=== PATIENT | female | born 1940 | race Hispanic/Latino ===

== ENCOUNTER → 2017-08-20 | Outpatient (CLI) | payer MEDICARE ==
[~2017-08-20] MED LIST: CETRIZINE PO; FAMOTIDINE20 MG PO; FUROSEMIDE INJ 10 MG/ML 4 ML VIAL ONE; FUROSEMIDE40 MG PO; GABAPENTIN300 MG PO; ISOSORBIDE DINI20 MG PO; LOSARTAN POTAS100 MG PO; METFORMIN HCL500 M2 PO; METOPROLOL TART50 MG PO; NORCO 10-325 T1 EACH PO; PANTOPRAZOLE SO40 MG PO; SERTRALINE HCL50 MG PO; SIMVASTATIN40 MG PO
--- NOTE | 2017-08-20 18:56 | Diagnostic Imaging Report ---
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 Technique: Following intravenous administration of 11 mCi of Tc-99m MAG3, dynamic images of the kidneys in the posterior projection were obtained through 40 minutes. Lasix 40 mg was administered intravenously at 13 minutes post injection of the tracer. Report: Left kidney: Perfusion of the left kidney is prompt. The kidney has a reniform shape but is slightly reduced in size. Extraction of tracer from the blood pool is mildly decreased. Clearance of tracer from the renal parenchyma begins promptly but is not complete by the end of the study. The pelvicalyceal system is not dilated. Physiologic pooling of tracer within the pelvicalyceal system is seen. Drainage of tracer from the pelvicalyceal system is adequate prior to administration of Lasix. No significant stasis of tracer is seen within the left ureter. Right kidney: Perfusion to the right kidney is prompt. The right kidney has a small round non-reniform shape. Extraction of tracer from the blood pool by the renal parenchyma is decreased. Clearance of tracer from the renal parenchyma begins promptly but is not complete by the end of the study. The pelvicalyceal system is not dilated although a mildly dilated calyx is seen in the upper pole. Physiologic pooling of tracer within the pelvicalyceal system is seen. Drainage of tracer from the pelvicalyceal system is adequate prior to administration of Lasix. No significant stasis of tracer is seen within the right ureter. Differential renal function: The left kidney contributes 69% of total renal function and the right kidney contributes 31% (normal 43-57%). Impression: 1. Scan evidence of medical renal disease in the left kidney. No hydronephrosis is present. No physiologically significant obstruction of the renal collecting system is present. 2. The right kidney is smaller than the left kidney; this accounts for the decreased differential function of 31%. Scan evidence of medical renal disease in the right kidney. No hydronephrosis is present. No physiologically significant obstruction of the renal collecting system is present. Signed by: Dr. Patrizia Erazo M.D. on 08/20/2017 6:52 PM
== END ==
LOC: NM 14:27
PROVIDERS: ATTEND Urology
DX: R31.9 Hematuria, unspecified (principal); N31.9 Neuromuscular dysfunction of bladder, unspecified
CPT/HCPCS: 78708; A9562; J1940

== ENCOUNTER → 2019-04-13 | Outpatient (CLI) | payer MEDICARE ==
[~2019-04-13] MED LIST changes: +AMLODIPINE BESYL5 MG PO; +ASPIRIN81 MG PO; +CLOPIDOGREL75 MG PO; -FUROSEMIDE INJ 10 MG/ML 4 ML VIAL ONE; +VITAMIN D1000 UNI1 PO; +[UNRECOGNIZED DRUG - REMARK] PO
--- NOTE | 2019-04-13 13:21 | Diagnostic Imaging Report ---
Exam: KUB - 2 views Clinical History: Hematuria Comparison: Renal ultrasound of 04/13/2019 Findings: No radiographically apparent renal calculi. Nonobstructive bowel gas pattern. No free air. Extensive lower lumbar spine degenerative changes. Impression: No radiographically apparent renal calculi. Signed by: Aman Aponte MD on 04/13/2019 1:18 PM
--- NOTE | 2019-04-13 13:23 | Diagnostic Imaging Report ---
EXAM: Renal Ultrasound INDICATION: ^ASYMPTOMATIC MICROSCOPIC HEMATURIA/UTI COMPARISON: None TECHNIQUE: Transverse and longitudinal images of the kidneys and bladder were obtained. FINDINGS: Right Kidney: Length: 9.6 cm Appearance: Normal echogenicity, malrotated, as seen on CT. Collecting system: No hydronephrosis Stones: None Cyst/Mass: None Left Kidney: Length: 10.0 cm Appearance: Normal echogenicity. Collecting system: No hydronephrosis Stones: None Cyst/Mass: None. 5 mm cyst seen on CT is not appreciated on this sonographic evaluation. Bladder: No stones or mass. Prevoid volume estimate of 140 cc. Weak bilateral ureteral jets seen. IMPRESSION: No renal calculi or hydronephrosis. Signed by: Aman Aponte MD on 04/13/2019 1:20 PM
== END ==
LOC: US 11:59
PROVIDERS: ATTEND Urology
DX: R31.21 Asymptomatic microscopic hematuria (principal); N39.0 Urinary tract infection, site not specified
CPT/HCPCS: 74018; 76770

== ENCOUNTER → 2019-04-19 | Day surgery (SDC) | payer MEDICARE ==
[2019-04-13 16:13] LABS: BASOPHILS % 0.1 % (0.0-1.0); EOSINOPHILS # (AUTO) 0.1 (0.0-0.4); EOSINOPHILS % 0.9 % (0.0-6.0); HEMATOCRIT 36.8 % (34.2-44.1); HEMOGLOBIN 11.5 g/dL (12.0-16.0); LYMPHOCYTES % 14.3 % (18.0-39.1); MEAN CORPUSCULAR HEMOGLOBIN 29.1 pg (28-32); MEAN CORPUSCULAR HGB CONC 31.3 g/dL (31-35); MEAN CORPUSCULAR VOLUME 93.2 fL (81-99); MONOCYTES # (AUTO) 0.5 (0.2-0.8); MONOCYTES % 7.4 % (4.4-11.3); NEUTROPHILS # (AUTO) 5.3 (2.1-6.9); NEUTROPHILS % 76.9 % (38.7-80.0); PLATELET COUNT 136 x10e3/uL (140-360); RED BLOOD COUNT 3.95 x10e6/uL (3.6-5.1); RED CELL DISTRIBUTION WIDTH 13.2 % (11.7-14.4)
[2019-04-13 16:30] LABS: ANION GAP 11.1 mmol/L (8-16); BLOOD UREA NITROGEN 22 mg/dL (7-26); BUN/CREATININE RATIO 25 (6-25); CALCIUM 9.1 mg/dL (8.4-10.2); CARBON DIOXIDE 36 mmol/L (22-29); CHLORIDE 94 mmol/L (98-107); CREATININE, SERUM 0.89 mg/dL (0.57-1.11); EST GLOMERULAR FILTRATION RATE > 60 ML/MIN (60-); GLUCOSE 110 mg/dL (74-118); POTASSIUM 4.1 mmol/L (3.5-5.1); SODIUM 137 mmol/L (136-145)
--- NOTE | 2019-04-13 16:47 | Diagnostic Imaging Report ---
EXAMINATION: CHEST 2 VIEWS INDICATION: Pre-operative COMPARISON: CT abdomen pelvis of 11/25/2016 FINDINGS: LINES/TUBES:None LUNGS:The lungs are moderately inflated. No focal consolidation or pulmonary edema. PLEURA:No pleural effusion or pneumothorax. MEDIASTINUM:Cardiomediastinal silhouette is enlarged. Calcified components of the right hilum, possibly reflecting calcified hilar lymph nodes. Atherosclerotic calcifications of the thoracic aorta. BONES/SOFT TISSUES:No acute osseous injury. ABDOMEN:No free air under the diaphragm. IMPRESSION: No focal pneumonia or pulmonary edema. Cardiomegaly. Possible right calcified hilar lymph nodes. Signed by: Aman Aponet MD on 04/13/2019 4:43 PM
[~2019-04-19] MED LIST changes: +B&O 60MG R/S 60 MG SUPP PR ONE; +BOTULINUM TOXIN TYPE A 100 UNIT VIAL IM ONE; +CEFTRIAXONE SOD 1 GM/NS 50 ML 50 ML IV ONE; +IOPAMIDOL 610MG/1ML 300 MG/ML VIAL IV ONE; +LIDOCAINE HCL 2% LOCAL INJ 5 ML SDV VIAL INJ ONE; +PROPOFOL IV EMULSION 10 MG/ML 20 ML VIAL ONE; +SEVOFLURANE INHAL SOLN 250 ML PEN BTL ONE; +TOVIAZ4 MG
--- OUTSIDE RECORDS SUMMARY | 2019-04-19 05:10 | XMS REPORT | Summary of Care ---
Author Organization Unknown Address Unknown Phone Unavailable Encounter HQ [employer](FIN) [id number] Date(s): 05/06/14 - 05/06/14 [facility] Outpatient Imaging - [address] [address]- [place] Discharge Disposition: Home Physician Attending: Wilian Canada MD Reason for Visit 474.33 - URGE Problem List Condition Effective Dates Status Health Status Informant Acid Active reflux(Confirmed) Anxiety(Confirmed) Active Arthritis(Confirmed) Active Congestive heart Active failure(Confirmed) CVA - Resolved Cerebrovascular accident(Confirmed)1 HTN - Active Hypertension(Confirm ed) Poor peripheral Active circulation(Confirme d) Urinary Active frequency(Confirmed) Weakness - Active general(Confirmed) 1Left hand & mouth Allergies, Adverse Reactions, Alerts Substance Reaction Severity Status NKDA Active Medications No data available for this section Medications Administered During Your Visit No data available for this section Immunizations No data available for this section Social History Social History Type Response Smoking Status Never smoker, Exposure to Tobacco Smoke None, Cigarette Smoking Last 365 Days No, Reg Smoking Cessation Counseling No
--- OUTSIDE RECORDS SUMMARY | 2019-04-19 05:10 | XMS REPORT | Continuity of Care Document ---
Author Author [employer] Organization [employer] Address Unknown Phone Unavailable Care Team Providers Care Income Tax Expert Name Role Phone [employer] Information To[employer]pick Unavailable Unavailable Problems Problem Status Onset Date Classification Date Reported Comments Source R13.10 Active 10/15/2018 [facility] Acute embolism and thrombosis of other specified deep vein of right lower extremity 06/13/2018 12/27/2018 [facility] I82.491 Active 06/09/2018 [facility] Other chest pain 04/01/2018 10/12/2018 [facility] I51.7 - CARDIOMEGALY Active 05/13/2016 [facility] [place] 788.33 - URGE STRESS I 344.61 - NEUROG Active 04/29/2014 [facility] [place] V65.3, 401.9, 787.1, V76.51 Active 05/27/2013 [facility] Gastroesophageal reflux disease (disorder) Active Problem [facility]/27[facility] Anxiety (finding) Active Problem 12/27/2018 [facility] Arthritis (disorder) Active Problem 12/27/2018 [facility] Congestive heart failure (disorder) Active Problem 12/27/[facility] Cerebrovascular accident (disorder) Resolved Problem 12/27/2018 Left hand & mouth [facility] [place] Hypertensive disorder, systemic arterial (disorder) Active Problem 12/27/2018 [facility] [place] Poor peripheral circulation (disorder) Active Problem 12/27/2018 [facility] Increased frequency of urination (finding) Active Problem 12/27/2018 [facility] Asthenia (finding) Active Problem 12/27/2018 [facility] DIETARY SURVEIL/CHERRY PICKER OPERATOR Active [facility] HYPERTENSION NOS Active [facility] HEARTBURN Active [facility] DYSPHAGIA, UNSPECIFIED Active [facility] GASTRO-ESOPHAGEAL REFLUX DISEASE WITHOUT Active [facility] COUGH Active [facility] ACUTE EMBOLISM AND THROMBOSIS OF DEEP VE Active [facility] Medications No Data Provided for This Section Allergies, Adverse Reactions, Alerts Substance Category Reaction Severity Reaction type Status Date Reported Comments Source No Known Medication Allergies Assertion Drug allergy [facility] Immunizations No Data Provided for This Section Results No Data Provided for This Section Pathology Reports No Data Provided for This Section Diagnostic Reports Report Value Date Source Esophagus BA swallow function video DX Patient Name: MARLYS RADFORD : 1940; Age: 78 years Female MR: [id number] Study: Esophagus BA swallow function video DX Order Time: 10/21/2018 14:46 [employer]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 COMPARISON: None. REFERENCE AIR KERMA: 6.98 mGy FLUOROSCOPY TIME: 1 minute 30 seconds TECHNIQUE: Fluoroscopic assistance was provided for the speech pathologist for modified barium swallow examination. Varying consistencies of barium were administered po. FINDINGS: Thin consistency barium: No aspiration. Intermittent delayed flash penetration seen with cup-assisted intake of thin consistency barium, with contrast remaining above the vocal folds and subsequently being cleared from the airway. [place] consistency barium: No aspiration or any significant laryngeal penetration. Honey consistency barium: Not administered during this examination. Pudding coated barium: No aspiration or any significant laryngeal penetration. Barium with cracker preparation: No aspiration or any significant laryngeal penetration. Of note, patient demonstrated bouts of coughing that appear to be unrelated to the swallowed boluses of various consistencies. IMPRESSION: 1. Intermittent delayed flash penetration seen with cup-assisted intake of thin consistency barium, with contrast remaining above the vocal folds and subsequently being cleared from the airway. Otherwise, normal modified swallow. 2. Of note, patient demonstrated bouts of coughing that appear to be unrelated to the swallowed boluses of various consistencies. This finding may be psychosomatic in nature. 3. Please refer to the speech pathologist's notes for further details. SL: [id number] 10/21/2018 [facility] Chest 2 views DX Clinical Indication: Cough and dysphasia Comparison: 03/25/2018 FINDINGS: The PA and lateral chest radiographs shows normal lung volumes without interstitial or airspace opacities, pleural effusions or pneumothorax. The heart is moderately enlarged but stable. There is no pulmonary vascular congestion. The trachea is midline. There are no clinically significant osseous abnormalities noted. IMPRESSION: 1. Stable cardiomegaly. 2. No focal infiltrates. SL: [id number] 10/21/2018 [facility] Ext Lower Venous Doppler Unilat US Patient Name: MARLYS RADFORD : 1940; Age: 78 years Female MR: [id number] Study: Ext Lower Venous Doppler Unilat US 06/09/2018 4:49 PM CDT CLINICAL INDICATION: - acute embolism and thrombosis of other specified deep vein of right lower extremity. Right leg pain and swelling, recent procedure COMPARISON: None TECHNIQUE: Sonographic evaluation of the right lower extremity veins was performed using high resolution B-mode imaging, along with pulse and color Doppler imaging. FINDINGS: Right lower extremity: The common femoral vein, femoral vein, popliteal vein and visualized posterior tibial/calf veins are patent and compressible. The saphenofemoral junction and visualized greater saphenous vein are patent and compressible. IMPRESSION: No evidence of deep venous thrombosis within the right lower extremity. SL: [id number] 06/09/2018 [facility] Chest 2 views DX EXAM: Chest 2 views DX HISTORY: - R07.89 Other chest pain COMPARISON: 02/12/2017 Cardiomegaly. No evidence of pneumonia, effusion or pneumothorax. Mild discogenic degenerative changes are noted. 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 IMPRESSION: No acute abnormality. 03/25/2018 [facility] Chest 2 views DX EXAM: XR CHEST 2 VIEWS DATE: 02/12/2017 12:13 PM CDT INDICATION: - J20.9 Acute bronchitis, unspecified COMPARISON: 05/13/2016 TECHNIQUE: PA and lateral chest radiographs FINDINGS: The lateral view is limited by difficulty in patient positioning. There is bilateral parenchymal scarring. No focal consolidation or pleural effusion is seen. The cardiomediastinal silhouette is prominent, but stable. No acute bony abnormality is identified. IMPRESSION: No acute abnormality. SL: [id number] 02/12/2017 [facility] Ribs bilateral DX EXAMINATION: Bilateral ribs HISTORY: R07.89 Other chest pain; chest wall pain FINDINGS: 5 views of the bilateral ribs are performed and compared to chest radiograph dated 05/13/2016. There are no displaced rib fractures. There are no pleural effusions. There is no pneumothorax. Bilateral glenohumeral osteoarthritis is noted. IMPRESSION: 1. No displaced rib fractures. 2. Bilateral glenohumeral osteoarthritis. 07/24/2016 [facility] [place] Chest 2 views DX Exam: Two-view chest x-ray Reason for Exam: I51.7 Cardiomegaly Comparison Exam: 09/12/2015 Discussion: Cardiac silhouette is enlarged. Mild pulmonary vascular congestion. Both hemidiaphragms well visualized. No pleural effusions identified. No focal lung consolidations. Trachea is midline. No acute bony abnormalities. Impression: 1. Cardiac silhouette is enlarged. Mild pulmonary vascular congestion. 05/13/2016 [facility] [place] Chest 2 views DX CHEST PA AND LATERAL History: 75-year-old with hypertension and a CVA Comparison: 09/06/2013 Findings: Mild cardiomegaly is present. The perihilar vessels are mild prominent. Lungs are expanded and clear, no infiltrate, mass or pleural effusion seen. Bones are mild osteopenic with osteoarthritic changes. IMPRESSION: Mild cardiomegaly with central prominent perihilar vessels. Findings appear stable compared to prior exam. 09/12/2015 [facility] [place] Shoulder series DX Left Shoulder x-ray 3 views Clinical history: 75-year-old with shoulder pain. Findings: Three views of the left shoulder demonstrate no acute fracture or subluxation. The AC joint space is mild narrow with sclerosis at the distal acromium and clavicle. The glenohumeral joint space is significant narrowed with abnormal lucencies throughout the humeral head consistent with subchondral cysts also smaller lucency seen at the glenoid. Small osteophyte seen at the inferior margins of the similar. There are no soft tissue calcifications. Impression: Mild osteoarthritic changes at the acromioclavicular joint. Severe osteoarthritic changes with joint space narrowing, subchondral cysts and osteophytes at the glenohumeral joint. 09/12/2015 [facility] [place] Consultation Notes No Data Provided for This Section Discharge Summaries No Data Provided for This Section History and Physicals No Data Provided for This Section Vital Signs No Data Provided for This Section Encounters Location Location Details Encounter Type Encounter Number Reason For Visit Attending Provider ADM Date DC Date Status Source [facility] [place] [facility] [id number] Wilian Canada 05/06/2014 05/07/2014 [facility] [place] [facility] [place] [facility] [id number] Jaya Benson 09/28/2014 09/29/2014 [facility] [place] [facility] [place] [facility] [id number] Jaya Benson 09/12/2015 09/13/2015 [facility] [place] [facility] [place] [facility] [id number] Jaya Benson 05/13/2016 05/14/2016 [facility] [place] [facility] [place] [facility] [id number] Jaya Benson 07/24/2016 07/25/2016 [facility] [place] [facility] [place] [facility] [id number] Jaya Benson 02/12/2017 02/13/2017 [facility] [place] [facility] [place] [facility] [id number] Jaya Schaeferuilar 03/25/2018 03/26/2018 [facility] [place] [facility] Outpatient [id number] Elvira Barlow 06/09/2018 06/10/2018 [facility] Outpatient [id number] Jaya Haneylar 10/21/2018 10/22/2018 [facility] Procedures Procedure Code Date Perfomer Comments Source section [id number] [id number] [facility] TKR -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 [id number] [facility]terine [facility] without shortening of round ligaments or sacrouterine ligaments [id number] [facility] Assessment and Plan No Data Provided for This Section Plan of Care No Data Provided for This Section Social History Social History Date Source Social History TypeResponse Smoking Status Never smoker; Exposure to Tobacco Smoke None; Cigarette Smoking Last 365 Days No; Reg Smoking Cessation Counseling No entered on: 10/11/13 10/11/2013 [facility] Social History TypeResponse Smoking Status Never smoker; Exposure to Tobacco Smoke None; Cigarette Smoking Last 365 Days No; Reg Smoking Cessation Counseling No entered on: 10/11/13 10/11/2013 [facility] Family History No Data Provided for This Section Advance Directives No Data Provided for This Section Functional Status No Data Provided for This Section
--- OUTSIDE RECORDS SUMMARY | 2019-04-19 05:10 | XMS REPORT ---
[facility] Address Unknown Phone Unavailable Care Team Providers Care Lens Matcher Name Role Phone SHANIKA HUTSON Unavailable Unavailable Payers Payer Name Policy Type Policy Number Effective Date Expiration Date Problems This patient has no known problems. Allergies, Adverse Reactions, Alerts Allergy Name Allergy Type Status Severity Reaction(s) Onset Date Inactive Date Treating Clinician Comments No Known Allergies DA Active U 2018-06-26 00:00:00 No Known Allergies DA Active U 2018-06-24 00:00:00 No Known Allergies DA Active U 2015-09-13 00:00:00 Medications This patient has no known medications. Results Test Description Test Time Test Comments Text Results Atomic Results Result Comments CHEST 2 VIEWS 2019-04-13 16:41:00 [facility] [address] [place] [address] Patient Name: MARLYS RADFORD MR #: [id number] : 1940 Age/Sex: 78/F Req #: [id number] Adm Physician: Ordered by: SHANIKA HUTSON MD Report #: [id number] Location: OR Room/Bed: Procedure: [id number] DX/CHEST 2 VIEWS Exam Date: 04/13/19 Exam Time: 1631 REPORT STATUS: Signed EXAMINATION: CHEST 2 VIEWS INDICATION: Pre-operative COMPARISON: CT abdomen pelvis of 11/25/2016 FINDINGS: LINES/TUBES:None LUNGS:The lungs are moderately inflated. No focal consolidation or pulmonary edema. PLEURA:No pleural effusion or pneumothorax. MEDIASTINUM:Cardiomediastinal silhouette is enlarged. Calcified components of the right hilum, possibly reflecting calcified hilar lymph nodes. Atherosclerotic calcifications of the thoracic aorta. BONES/SOFT TISSUES:No acute osseous injury. ABDOMEN:No free air under the diaphragm. IMPRESSION: No focal pneumonia or pulmonary edema. Cardiomegaly. Possible right calcified hilar lymph nodes. Signed by: Coty Bashir MD on 04/13/2019 4:43 PM Dictated By: COTY BASHIR MD 42 Transcribed By: HEYDI on 04/13/191642 COPY TO: SHANIKA HUTSON MD RENAL RETROPERITONEAL COMP 2019-04-13 13:18:00 [place] [address] Patient Name: MARLYS RADFORD MR #: [id number] : 1940 Age/Sex: 78/F Req #: [id number] Adm Physician: Ordered by: SHANIKA HUTSON MD Report #: [id number] Location: Room/Bed: Procedure: [id number] US/US RENAL RETROPERITONEAL COMP Exam Date: Exam Time: REPORT STATUS: Signed EXAM: Renal Ultrasound INDICATION: ASYMPTOMATIC MICROSCOPIC HEMATURIA/UTI COMPARISON: None TECHNIQUE: Transverse and longitudinal images of the kidneys and bladder were obtained. FINDINGS: Right Kidney: Length: 9.6 cm Appearance: Normal echogenicity, malrotated, as seen on CT. Collecting system: No hydronephrosis Stones: None Cyst/Mass: None Left Kidney: Length: 10.0 cm Appearance: Normal echogenicity. Collecting system: No hydronephrosis Stones: None Cyst/Mass: None. 5 mm cyst seen on CT is not appreciated on this sonographic evaluation. Bladder: No stones or mass. Prevoid volume estimate of 140 cc. Weak bilateral ureteral jets seen. IMPRESSION: No renal calculi or hydronephrosis. Signed by: Coty Bashir MD on 04/13/2019 1:20 PM Dictated By: COTY BASHIR MD 1320 Transcribed By: HEYDI on 04/13/19 1320 COPY TO: SHANIKA HUTSON MD ABDOMEN-1VIEW (KUB) 2019-04-13 13:16:00 [place] [address] Patient Name: MARLYS RADFORD MR #: [id number] : 1940 Age/Sex: 78/F Req #: [id number] Adm Physician: Ordered by: SHANIKA HUTSON MD Report #: [id number] Location: Room/Bed: Procedure: [id number] DX/ABDOMEN-1VIEW (KUB) Exam Date: 04/13/19 Exam Time: 1300 REPORT STATUS: Signed Exam: KUB - 2 views Clinical History: Hematuria Comparison: Renal ultrasound of 04/13/2019 Findings: No radiographically apparent renal calculi. Nonobstructive bowel gas pattern. No free air. Extensive lower lumbar spine degenerative changes. Impression: No radiographically apparent renal calculi. Signed by: Coty Bashir MD on 04/13/2019 1:18 PM Dictated By: COTY BASHIR MD 17 Transcribed By: HEYDI on 04/13/191317 COPY TO: SHANIKA HUTSON MD PROTHROMBIN TIME 2018-11-20 12:00:00 PROTHROMBIN TIME PATIENT (test code=PTP) 11.5 SECONDS 9.3-12.9 INTERNATIONAL NORMAL RATIO (test code=INR) 1.0 0.8-1.2 TARGET INR BY INDICATION Indication INR1. Prophylaxis of venous thrombosis 2.0 - 3.0 (orthopedic surgery), Prophylaxis of venous thrombosis (other than high-risk surgery), Treatment of Deep Vein Thrombosis/Pulmonary Embolism, Prevention of systemic embolism - Tissue heart valves, Acute Myocardial Infarction (to prevent systemic embolism), Valvular heart disease, Atrial Fibrillation, Bileaflet mechanical valve in aortic position.2. Mechanical prosthetic valves (high risk), 2.5 - 3.5 Presence of Lupus Anticoagulant or Antiphospholipid Antibodies, Prevention of systemic embolism - Acute Myocardial Infarction (to prevent recurrent infarct). BASIC METABOLIC [id number] 11:35:00* Test Item Value Reference Range Comments SODIUM (test code=NA) 140 mEq/L 134-147 POTASSIUM (test code=K) 4.0 mEq/L 3.4-5.0 CHLORIDE (test code=CL) 102 mEq/L 100-108 CARBON DIOXIDE (test code=CO2) 34 mEq/L 21-33 ANION GAP (test code=GAP) 8 0-20 GLUCOSE (test code=GLU) 116 mg/dL 70-110 BLOOD UREA NITROGEN (test code=BUN) 19 mg/dL 7-18 GLOMERULAR FILTRATION RATE (test code=GFR) 80.7 70-80 Units of measure=ml/min/1.73 m2 CREATININE (test code=CREAT) 0.7 mg/dL 0.6-1.3 CALCIUM (test code=CA) 8.9 mg/dL 8.0-10.5 CBC W/AUTO [id number] 11:01:00* Test Item Value Reference Range Comments WHITE BLOOD CELL (test code=WBC) 5.97 x10 3/uL 4.5-11.0 RED BLOOD CELL (test code=RBC) 3.84 x10 6/uL 3.54-5.02 HEMOGLOBIN (test code=HGB) 10.9 g/dL 11.0-15.0 HEMATOCRIT (test code=HCT) 36.6 % 33.0-45.0 MEAN CELL VOLUME (test code=MCV) 95.3 fL 81.0-99.0 MEAN CELL HGB (test code=MCH) 28.4 pg 27.0-33.0 MEAN CELL HGB CONCETRATION (test code=MCHC) 29.8 g/dL 33.0-37.0 RED CELL DISTRIBUTION WIDTH CV (test code=RDW) 13.9 % 11.5-14.5 RED CELL DISTRIBUTION WIDTH SD (test code=RDW-SD) 49.1 fL 37.0-54.0 PLATELET COUNT (test code=PLT) 154 x10 3/uL 150-400 MEAN PLATELET VOLUME (test code=MPV) 10.0 fL 7.0-9.0 NEUTROPHIL % (test code=NT%) 74.9 % 56.0-77.0 IMMATURE GRANULOCYTE % (test code=IG%) 0.3 % 0.0-2.0 LYMPHOCYTE % (test code=LY%) 15.2 % 14.0-32.0 MONOCYTE % (test code=MO%) 8.7 % 4.8-9.0 EOSINOPHIL % (test code=EO%) 0.7 % 0.3-3.7 BASOPHIL % (test code=BA%) 0.2 % 0.0-2.0 NUCLEATED RBC % (test code=NRBC%) 0.0 % 0-0 NEUTROPHIL # (test code=NT#) 4.47 x10 3/uL 2.0-7.6 IMMATURE GRANULOCYTE # (test code=IG#) 0.02 x10 3/uL 0.00-0.03 LYMPHOCYTE # (test code=LY#) 0.91 x10 3/uL 1.0-3.8 MONOCYTE # (test code=MO#) 0.52 x10 3/uL 0.1-0.8 EOSINOPHIL # (test code=EO#) 0.04 x10 3/uL 0.0-0.2 BASOPHIL # (test code=BA#) 0.01 x10 3/uL 0.0-0.2 NUCLEATED RBC # (test code=NRBC#) 0.00 x10 3/uL 0.0-0.1 MANUAL DIFF REQUIRED (test code=MDIFF) NO - XR CHEST 2 [id number] 10:42:00 FAX: Louie Morel MD [phone] [place]: St: PRE Name: MARLYS JONES [facility] : [birth year] Age/S: 78/F [address] [place] [address] Unit #: [id number] Loc: [place] [address] Phys: Louie Harrington MD Acct: [id number] Dis Date: Status: PRE SDC PHONE #: [phone] Exam Date: 11/20/2018 1036 FAX #: [phone] Reason: PRE PROCEDURE/CAD EXAMS: CPT CODE: [id number] XR CHEST 2 V 97061 CHEST RADIOGRAPHS - PA AND LATERAL: COMPARISON: May 21, 2018 CLINICAL HISTORY: PRE PROCEDURE/CAD Cardiomegaly is stable. Lungs are clear. No vascular congestion or pneumothorax. The re are degenerative changes in the left glenohumeral joint. IMPR ESSION: No acute pulmonary abnormality. Sta ble cardiomegaly. Electronically Signed by Mariana Doshi on 10/31 at 1042 Reported and signed by: Alia Carroll CC: Louie Harrington MD Technologist: RT Donald(Francesco) Trnscrd Date/Time/By: 11/20/2018 (1042) : By: [email or web address] PAGE 1 Signed Report SCR MAMM BILATERAL FLETCHER CAD [id number] 14:15:03 - SCR MAMM BILATERAL FLETCHER CAD DIGITALBILATERAL DIGITAL SCREENING MAMMOGRAM 3D/2D WITH CAD: 10/14/2018CLINICAL: Asymptomatic. Digital breast tomosynthesis was performed in addition to routine CC and MLO views. Current mammographic images were evaluated by either a [employer] M-Vu or a [employer] ImageChecker CAD (computer aided detection system). Comparison is made to exams dated 09/15/2017 mammogram, 08/19/2016 mammogram, and 08/17/2015 mammogram - [facility]-. The tissue of both breasts is predominantly fatty. No suspicious mass, architectural distortion, malignant type calcification, or lymph node abnormality detected. Breast architecture is stable compared to prior exams.IMPRESSION: NEGATIVEThere is no mammographic evidence of malignancy. Resume annual screening mammography in one year. Marquez Lord M.D. ss/penrad:10/14/2018 14:15:03 copy to: [facility], [facility], ph: [phone], fax: [phone] Technologist: Claudia RIVERA, [facility]-FWletter sent: BIRADS 1-2 Normal Mammogram BI-RADS: 1 NegativeRENAL SCAN W/LASIX [place] [address] Patient Name: MARLYS RADFORD MR #: [id number] : 1940 Age/Sex: 77/F Req #: [id number] [facility] Physician: Ordered by: SHANIKA HUTSON MD Report #: [id number] Location: CT Room/Bed: Procedure: [id number] NM/RENAL SCAN W/LASIX Exam Date: 08/20/17 Exam Time: 1350 REPORT STATUS: Signed Renal Scan with Lasix Washout Clinical information: 77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 Technique: Following intravenous administration of 11 mCi of Tc-99m MAG3, dynamic images of the kidneys in the posterior projection were obtained through 40 minutes. Lasix 40 mg was administered intravenously at 13 minutes post injection of the tracer. Report: Left kidney: Perfusion of the left kidney is prompt. The kidney has a reniform shape but is slightly reduce d in size. Extraction of tracer from the blood pool is mildly decreased. Ghassan arance of tracer from the renal parenchyma begins promptly but is not complete by the end of the study. The pelvicalyceal system is not dilated. Physiolog ic pooling of tracer within the pelvicalyceal system is seen. Drainage of tra cer from the pelvicalyceal system is adequate prior to administration of Lasix . No significant stasis of tracer is seen within the left ureter. Right kidney: Perfusion to the right kidney is prompt. The right kidney has a smal l round non-reniform shape. Extraction of tracer from the blood pool by the r enal parenchyma is decreased. Clearance of tracer from the renal parenchyma be gins promptly but is not complete by the end of the study. The pelvicalyceal system is not dilated although a mildly dilated calyx is seen in the upper veto e. Physiologic pooling of tracer within the pelvicalyceal system is seen. Kirti inage of tracer from the pelvicalyceal system is adequate prior to administrat ion of Lasix. No significant stasis of tracer is seen within the right ureter . Differential renal function: The left kidney contributes 69% of total aron al function and the right kidney contributes 31% (normal 43-57%). Impress ion: 1. Scan evidence of medical renal disease in the left kidney. No hydr onephrosis is present. No physiologically significant obstruction of the anh l collecting system is present. 2. The right kidney is smaller than the left kidney; this accounts for the decreased differential function of 31%. Sc an evidence of medical renal disease in the right kidney. No hydronephrosis is present. No physiologically significant obstruction of the renal collecting s ystem is present. Signed by: Dr. Sridhar Erazo M.D. on 08/20/2017 6:52 PM Dictated By: SRIDHAR ERAZO MD 51 COPY TO: KENYA HUTSON MD
--- OUTSIDE RECORDS SUMMARY | 2019-04-19 05:10 | XMS REPORT | Summary of Care ---
Author Author [facility] [place] Organization [facility] [place] Address Unknown Phone Unavailable Encounter HQ Christ_bebo(FIN) [id number] Date(s): 03/25/18 - 03/25/[address] [facility] [place] [address] [place] [phone] Encounter Diagnosis Other chest pain (Final) - 03/31/18 Discharge Disposition: Home or Self Care Attending Physician: Jaya Benson MD Referring Physician: Jaya Benson MD Vital Signs No data available for this section Problem List Condition Effective Dates Status Health Status Informant Acid Active reflux(Confirmed) Anxiety(Confirmed) Active Arthritis(Confirmed) Active Congestive heart Active failure(Confirmed) CVA - Resolved Cerebrovascular accident(Confirmed)1 HTN - Active Hypertension(Confirm ed) Poor peripheral Active circulation(Confirme d) Urinary Active frequency(Confirmed) Weakness - Active general(Confirmed) 1Left hand & mouth Allergies, Adverse Reactions, Alerts Substance Reaction Severity Status NKDA Active Medications No data available for this section Results No data available for this section Immunizations No data available for this section Procedures Procedure Date Related Diagnosis Body Site Status section Completed Hernia repair Completed TKR -Total prosthetic replacement of knee Completed joint using cement Uterine suspension without shortening of Completed round ligaments or sacrouterine ligaments Social History Social History Type Response Smoking Status Never smoker; Exposure to Tobacco Smoke None; Cigarette Smoking Last 365 Days No; Reg Smoking Cessation Counseling No entered on: 10/11/13 Assessment and Plan No data available for this section
--- OUTSIDE RECORDS SUMMARY | 2019-04-19 05:10 | XMS REPORT | Summary of Care ---
Author Author [facility] [place] Organization [facility] [place] Address Unknown Phone Unavailable Encounter HQ Katentr_bebo(FIN) [id number] Date(s): 02/12/17 - 02/12/17 [facility] [place] [address] [place] [phone] Discharge Disposition: Home or Self Care Attending Physician: Jaya Benson MD Vital Signs No [...] Procedures Procedure Date Related Diagnosis Body Site section Hernia repair TKR -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 Uterine suspension without shortening of round ligaments or sacrouterine ligaments Social History Social History Type Response Smoking Status Never smoker; Exposure to Tobacco Smoke None; Cigarette Smoking Last 365 Days No; Reg Smoking Cessation Counseling No Assessment and Plan No data available for this section
--- OUTSIDE RECORDS SUMMARY | 2019-04-19 05:10 | XMS REPORT | Summary of Care ---
Author Author [facility] Organization [facility] Address Unknown Phone Unavailable Encounter HQ Jose(FIN) [id number] Date(s): 06/09/18 - 06/09/18 [facility] [address] [facility] [place] [address]- [phone] Encounter Diagnosis Acute embolism and thrombosis of other specified deep vein of right lower extrem ity (Final) - 06/12/18 Discharge Disposition: Home or Self Care Attending Physician: Elvira Barlow MD Referring Physician: Elvira Barlow MD Vital Signs No data available for this section Problem List Condition Effective Dates Status Health Status Informant Acid Active reflux(Confirmed) Anxiety(Confirmed) Active Arthritis(Confirmed) Active Congestive heart Active failure(Confirmed) CVA - Resolved Cerebrovascular accident(Confirmed)1 HTN - Active Hypertension(Confirm ed) Poor peripheral Active circulation(Confirme d) Urinary Active frequency(Confirmed) Weakness - Active general(Confirmed) 1Left hand & mouth Allergies, Adverse Reactions, Alerts No Known Medication Allergies Medications No data available for this section [...]
--- OUTSIDE RECORDS SUMMARY | 2019-04-19 05:10 | XMS REPORT | Summary of Care ---
Author Author [facility] Organization [facility] Address Unknown Phone Unavailable Encounter HQ Jose(FIN) [id number] Date(s): 10/21/18 - 10/21/18 [facility] [address] [place] [address]- Discharge Disposition: Home or Self Care Attending [...]
--- OUTSIDE RECORDS SUMMARY | 2019-04-19 05:10 | XMS REPORT | Summary of Care ---
Author Author [facility] [place] Organization [facility] [place] Address Unknown Phone Unavailable Encounter HQ Katentr_bebo(FIN) [id number] Date(s): 09/12/15 - 09/12/15 [facility] [place] [address] [place] [address]- [facility] [phone] Discharge Disposition: Home Attending Physician: Jaya Benson MD Vital Signs [...]
--- OUTSIDE RECORDS SUMMARY | 2019-04-19 05:10 | XMS REPORT | Summary of Care ---
Author Author [facility] [place] Organization [facility] [place] Address Unknown Phone Unavailable Encounter HQ Hayderr_bebo(FIN) [id number] Date(s): 07/24/16 - 07/24/16 [facility] [place] [address] [place] [phone] Discharge Disposition: Home or Self Care Attending [...]
--- OUTSIDE RECORDS SUMMARY | 2019-04-19 05:10 | XMS REPORT | Summary of Care ---
Author Author [facility] [place] Organization [facility] [place] Address Unknown Phone Unavailable Encounter HQ Hayderr_bebo(FIN) [id number] Date(s): 05/13/16 - 05/13/16 [facility] [place] [address] [place] [phone] Discharge Disposition: Home or Self Care Attending [...]
--- OUTSIDE RECORDS SUMMARY | 2019-04-19 05:10 | XMS REPORT | Summary of Care ---
Author Organization Unknown Address Unknown Phone Unavailable Encounter HQ Christ_bebo(FIN) [id number] Date(s): 09/28/14 - 09/28/14 [facility] Out[facility] Imaging - [address] [address]- [place] Discharge Disposition: Home Physician Attending: Jaya Benson MD Reason for Visit 719.45 - JOINT PAIN-PELV Problem List Condition Effective Dates Status Health [...]
[2019-04-19 09:25] VITALS: BP 144/83
--- NOTE | 2019-06-01 07:10 | Operative Report ---
DATE OF PROCEDURE: 04/19/2019 SURGEON: Wilian Canada MD PREOPERATIVE DIAGNOSES: 1. Refractory urge incontinence. 2. Urinary tract infections. 3. Microhematuria. POSTOPERATIVE DIAGNOSES: 1. Refractory urge incontinence. 2. Urinary tract infections. 3. Microhematuria. 4. Grade 1 cystocele. 5. Atrophic (senile) vaginitis. OPERATIONS PERFORMED: 1. Cystourethroscopy with bilateral ureteral catheterization and retrograde ureteropyelography (separate procedure performed for the hematuria and urinary tract infection). 2. Interpretation of retrograde ureteropyelography. 3. Cystourethroscopy with intravesical injection of Botox (separate procedure performed for the urge incontinence). 4. Pelvic examination under anesthesia. ANESTHESIA: General. COMPLICATIONS: None. CLINICAL SUMMARY: Vida Barrera is a 78-year-old woman with the above preoperative diagnosis. She was brought for the above procedures. She is aware of the risks of bleeding, infection, injury to adjacent structures, need for additional procedures, and elected to proceed. She also understands the nature of these Botox injections. OPERATIVE PROCEDURE IN DETAIL: Informed consent was verified. Vida Barrera was properly identified and taken to the operating room, placed on the cystoscopy table in supine position. Anesthesia was uneventfully begun. The patient was then carefully and gently repositioned in dorsal lithotomy position with all pressure points well padded. Her genitalia were prepared and draped in usual sterile fashion. The cystoscope sheath with obturator in place was atraumatically inserted into the patient's urethra and bladder was drained. Panendoscopy of the bladder revealed no suspicious mucosal lesions, no tumors, no stones. There was a small right-sided bladder diverticulum. An 8-Slovak catheter was used to cannulate the each ureter and retrograde ureteropyelography was performed. Interpretation of retrograde ureteropyelography contrast was instilled in retrograde fashion bilaterally. There were no tumors. There were no stones. There were no obvious diverticula. 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 There was some tortuosity of the right ureter. Nevertheless, unobstructed drainage was observed bilaterally fluoroscopically. 100 units of Botox were dissolved in sterile saline, this was then injected and 0.5 mL aliquots in an even distribution throughout the supratrigonal bladder. The patient's bladder was drained, cystoscope was withdrawn. Pelvic examination revealed a mild cystocele, it is grade 1 with atrophic (senile) vaginitis. No abnormal palpable pelvic masses could be appreciated. There were no obvious mucosal lesions. The patient was then uneventfully reversed from anesthesia and taken to the recovery room in stable condition. There were no complications of the procedure. She tolerated the total procedure well. We will follow the patient up in the office and of course on an indefinite basis. Wilian MD Nancie OH/MODL /[id number] cc: Jaya Benson MD
== END | disposition home or self-care (01) ==
LOC: OR 05:00
PROVIDERS: ATTEND Urology
DX: N39.46 Mixed incontinence (principal); N39.0 Urinary tract infection, site not specified; N81.10 Cystocele, unspecified; N95.2 Postmenopausal atrophic vaginitis; N32.3 Diverticulum of bladder; N13.8 Other obstructive and reflux uropathy; N31.9 Neuromuscular dysfunction of bladder, unspecified; N36.41 Hypermobility of urethra; R35.1 Nocturia; E11.22 Type 2 diabetes mellitus with diabetic chronic kidney disease; I12.9 Hypertensive chronic kidney disease with stage 1 through stage 4 chronic kidney disease, or unspecified chronic kidney disease; N18.9 Chronic kidney disease, unspecified; J44.9 Chronic obstructive pulmonary disease, unspecified; I48.91 Unspecified atrial fibrillation; I45.10 Unspecified right bundle-branch block; I51.7 Cardiomegaly; E66.9 Obesity, unspecified; K21.9 Gastro-esophageal reflux disease without esophagitis; G47.33 Obstructive sleep apnea (adult) (pediatric); I69.398 Other sequelae of cerebral infarction; I69.359 Hemiplegia and hemiparesis following cerebral infarction affecting unspecified side; R60.0 Localized edema; Z01.810 Encounter for preprocedural cardiovascular examination; Z01.812 Encounter for preprocedural laboratory examination; Z01.818 Encounter for other preprocedural examination; Z79.02 Long term (current) use of antithrombotics/antiplatelets; Z79.82 Long term (current) use of aspirin; Z79.84 Long term (current) use of oral hypoglycemic drugs; Z68.41 Body mass index [BMI] 40.0-44.9, adult
CPT/HCPCS: 36415 ×2; 52005; 52287; 71046; 74420; 80048; 82948; 85025; 93005; C1758; J0587; J0696; J2001; J2704; Q9967

== ENCOUNTER → 2019-06-03 | Day surgery (SDC) | payer MEDICARE ==
[~2019-06-03] MED LIST changes: -B&O 60MG R/S 60 MG SUPP PR ONE; -BOTULINUM TOXIN TYPE A 100 UNIT VIAL IM ONE; -CEFTRIAXONE SOD 1 GM/NS 50 ML 50 ML IV ONE; +FENTANYL CITRATE/PF 100MCG/2 ML INJ ONE; -IOPAMIDOL 610MG/1ML 300 MG/ML VIAL IV ONE; -LIDOCAINE HCL 2% LOCAL INJ 5 ML SDV VIAL INJ ONE; -PROPOFOL IV EMULSION 10 MG/ML 20 ML VIAL ONE; +PROPOFOL IV EMULSION 10 MG/ML 50 ML VIAL ONE; -SEVOFLURANE INHAL SOLN 250 ML PEN BTL ONE
[2019-06-03 11:02] VITALS: BP 130/84
== END | disposition home or self-care (01) ==
LOC: OR 09:10
PROVIDERS: ATTEND Internal Medicine Gastroenterology
DX: R13.10 Dysphagia, unspecified (principal); E11.9 Type 2 diabetes mellitus without complications; I10 Essential (primary) hypertension; E66.9 Obesity, unspecified; Z68.39 Body mass index [BMI] 39.0-39.9, adult; Z71.3 Dietary counseling and surveillance; K21.9 Gastro-esophageal reflux disease without esophagitis; K44.9 Diaphragmatic hernia without obstruction or gangrene; I69.334 Monoplegia of upper limb following cerebral infarction affecting left non-dominant side; F32.9 Major depressive disorder, single episode, unspecified; M19.90 Unspecified osteoarthritis, unspecified site; J44.9 Chronic obstructive pulmonary disease, unspecified; G47.33 Obstructive sleep apnea (adult) (pediatric); I25.10 Atherosclerotic heart disease of native coronary artery without angina pectoris; I48.91 Unspecified atrial fibrillation; Z79.01 Long term (current) use of anticoagulants; Z87.440 Personal history of urinary (tract) infections; K29.70 Gastritis, unspecified, without bleeding; Z79.82 Long term (current) use of aspirin; Z79.84 Long term (current) use of oral hypoglycemic drugs
CPT/HCPCS: 36415; 43239; 43450; 82948; 88305; 88312; J2704; J3010

== ENCOUNTER → 2020-08-11 | Outpatient (CLI) | payer MEDICARE ==
[~2020-08-11] MED LIST changes: -FENTANYL CITRATE/PF 100MCG/2 ML INJ ONE; -PROPOFOL IV EMULSION 10 MG/ML 50 ML VIAL ONE
== END ==
LOC: US 10:30
PROVIDERS: ATTEND Urology
DX: N28.1 Cyst of kidney, acquired (principal)
CPT/HCPCS: 76770; 76857